=== PATIENT | female | born 1970 | race Caucasian/White ===

== ENCOUNTER 2020-10-28 13:31 | Emergency (ER) | payer MEDICARE, BC, SELFPAY ==
[2020-10-28 13:31] VITALS: BP 139/94; PULSE 93; RESP 15; TEMP 36.8; O2SAT 99; BMI 21.9
--- NOTE | 2020-10-28 13:33 | ECG_ITS ---
APPROVED REPORT Exam: Resting ECG HR:85 bpm ECG Measurements Heart Rate 85 AXES TX 122 P 76 QRSd 80 QRS 88 QT 386 T 82 QTc 459 Conclusion Normal sinus rhythm Normal ECG Electronically signed by : Tae Lewis, 10/30/2020 17:31:13
[2020-10-28 13:38] VITALS: BP 125/89; PULSE 90; O2SAT 98
--- NOTE | 2020-10-28 13:38 | [facility].EDCP ---
ED Disposition Clinical Impression: Atypical chest pain, Dyspepsia Disposition: Home, Self-Care Condition on Discharge: Good Prescriptions: Omeprazole 20 mg PO DAILY #30 capsule.dr Transmission Status: Pending to [id number] Referrals: PCP,No [Primary Care Provider] - - Critical Care Critical Care Time: No Attestation: On 10/28/20, the high probability of a clinically significant, sudden or life threatening deterioration of the following system(s) required my full and direct attention, intervention and personal management. The time I documented below is in addition to time spent performing reported procedures but includes the following listed in this critical care notation. Medical Decision Making - Medical Records Medical records reviewed: Yes: I reviewed the patient's medical records. - Zach Inquiry Pt receiving controlled substance: No Vital Signs: 10/28/20 13:31 10/28/20 13:38 10/28/20 14:29 Temperature 98.3 F Temperature Source Oral Pulse Rate [Right Brachial] 93 H 90 88 Respiratory Rate 15 Blood Pressure [Right Arm] 139/94 H 125/89 151/104 H Blood Pressure Mean [Right Arm] 109 101 119 Blood Pressure Source [Right Arm] Automatic Cuff Blood Pressure Position [Right Arm] Sitting 02 Sat by Pulse Oximetry 99 98 98 Oxygen Delivery Method Room Air - Lab Data Lab results reviewed: Yes: I reviewed the patient's lab results. Lab Results 10/28/20 13:51: WBC 6.2, RBC 6.30 H, Hgb 15.4, Hct 47.1 H, MCV 74.8 L, MCH 24.5 L, MCHC 32.7, RDW 14.1, Plt Count 200, MPV 10.2, Neut % (Auto) 64.6, Lymph % (Auto) 24.3, [place] % (Auto) 8.2, Eos % (Auto) 2.1, Baso % (Auto) 0.9, Neut # (Auto) 4.0, Lymph # (Auto) 1.5, [place] # (Auto) 0.5, Eos # (Auto) 0.1, Baso # (Auto) 0.1 10/28/20 13:51: Sodium 138, Potassium 3.7, Chloride 103, Carbon Dioxide 28, Anion Gap 10.7, BUN 12, Creatinine 0.80, Estimated Creat Clear 83, Estimated GFR 76, Est GFR ( Amer) 92, Glucose 83, Calcium 9.8, Troponin I < 0.01 Result diagrams: 10/28/20 13:51 10/28/20 13:51 Orders (Tests/Meds): ED MEDICATIONS Discontinued Medications Generic Name Dose Route Start Last Admin Trade Name Yasir PRN Reason Stop Dose Admin Belladonna Alkaloids 60 ml 10/28/20 13:51 10/28/20 14:06 Gi Cocktail 60ml Udc PO 10/28/20 13:52 60 ml ONCE ONE Administration Ondansetron HCl 4 mg 10/28/20 13:51 10/28/20 14:28 Ondansetron 4mg Odt SL 10/28/20 13:52 4 mg ONCE ONE Administration Pantoprazole Sodium 40 mg 10/28/20 13:51 10/28/20 14:28 Pantoprazole 40mg Tablet PO 10/28/20 13:52 40 mg ONCE ONE Administration ORDERS Category Date Time Status XR chest 2V Stat Exams 10/28/20 13:39 Taken Troponin I Q3H Lab 10/28/20 16:45 Ordered Troponin I Q3H Lab 10/28/20 19:45 Ordered ECG Request by /[place] Stat Y 10/28/20 13:38 Ordered - Radiology Data #1 Image(s): Chest Image Reviewed: Yes I reviewed the patient's radiology results Preliminary Findings: Normal/NAD - ECG Data Tracing #1 ECG initial impression date: 10/28/20 ECG initial impression time: 13:35 ECG normal with no acute: arrhythmias, ischemia, conduction abnormalities, chamber hypertrophy Normal Sinus Rhythm: Yes Chest Pain HPI - General Chief Complaint: Chest Pain Stated Complaint: chest pain Time Seen by Provider: 10/28/20 13:32 Mode of Arrival: Wheelchair Limitations: No Limitations Description of Symptoms (Recalled from ER Triage Doc. by RN): Pt arrived with complaints of epigastric pain radiating into her chest. States it started 2 hours ago, and has associated nausea. No other complaints. - History of Present Illness HPI narrative: This is a 50-year-old female who presents with epigastric pain that radiates up into the chest. Symptoms began about 1 to 1-1/2 hours prior to arrival upon awakening. Patient reported symptoms started initially with indigestion and belching. She describes the pain as a pre
--- NOTE | 2020-10-28 13:39 | XR_ITS ---
PROCEDURE: XR CHEST 2V CLINICAL HISTORY: chest pain COMPARISON: CR CXR1 CHEST-PORTABLE from 02/01/2013 CR CXR2 CHEST-AP VIEW ONLY from 11/02/2014 CR CXR CHEST(2 VIEWS-NOT PORTABLE) from 10/29/2016 FINDINGS: The cardiomediastinal silhouette and pulmonary vascularity are within normal limits. The lungs are clear without infiltrates, suspicious nodules, or pleural effusions. No acute bony abnormalities. IMPRESSION: No acute findings. Dictated by: Naun Alvarez MD 10/28/2020 15:48 Naun Alvarez MD in [place] 10/28/2020 15:48
--- NOTE | 2020-10-28 13:58 | PC.NURSE ---
1352 - to radiology 1358 - back from radiology
--- NOTE | 2020-10-28 13:58 | PC.NURSE ---
notified that I was unable to obtain an IV, but did get blood drawn and sent to lab. stated OK to not start IV at this time
[2020-10-28 14:05] LABS: Chloride 103 mmol/L (98-107); Sodium 138 mmol/L (136-145)
[2020-10-28 14:06] LABS: Potassium 3.7 mmoL/L (3.5-5.1)
[2020-10-28 14:08] LABS: Blood Urea Nitrogen 12 mg/dl (7-17); Creatinine Clearance Estimated 83 mL/min (50-200); Estimated Glomerular Filt Rate 76 ml/min (>60); GFR (African American) 92 ML/MIN (>60)
[2020-10-28 14:09] LABS: Anion Gap 10.7 mEq/L (5-15); Calcium 9.8 mg/dl (8.4-10.2); Carbon Dioxide 28 mmol/L (22.0-30.0); Glucose 83 mg/dl (74-100)
[2020-10-28 14:10] LABS: Basophils # 0.1 K/mm3 (0-0.2); Basophils % 0.9 % (0.1-2.0); Eosinophils # 0.1 K/mm3 (0.0-0.4); Eosinophils % 2.1 % (0.1-12.0); Hematocrit 47.1 % (37.0-47.0); Hemoglobin 15.4 g/dL (12.2-16.2); Lymphocytes # 1.5 K/mm3 (0.7-4.5); Lymphocytes % 24.3 % (10-50); Mean Corpuscular HGB Conc 32.7 g/dL (31.8-35.4); Mean Corpuscular Hemoglobin 24.5 pg (27.0-31.2); Mean Corpuscular Volume 74.8 fl (81-99); Mean Platelet Volume 10.2 fl (7.4-10.4); Monocytes # 0.5 K/mm3 (0.1-1.0); Monocytes % 8.2 % (1.7-9.3); Neutrophils % 64.6 % (37.0-80.0); Platelet Count 200 K/mm3 (142-424); Red Cell Distribution Width 14.1 % (11.5-17.5); White Blood Count 6.2 K/mm3 (4.8-10.8)
[2020-10-28 14:26] LABS: Troponin I < 0.01 ng/ml (0.00-0.034)
[2020-10-28 14:29] VITALS: BP 151/104; PULSE 88; O2SAT 98
[2020-10-28 15:01] VITALS: BP 154/99; PULSE 78; RESP 15; TEMP 37; O2SAT 98
== END 2020-10-28 15:03 | disposition home or self-care (01) ==
PROVIDERS: Emergency Provider Emergency Medicine
DX: R10.13 Epigastric pain (principal); R07.89 Other chest pain; F17.210 Nicotine dependence, cigarettes, uncomplicated
CPT/HCPCS: 71046; 80048; 84484; 85025; 93005; 96372; 99283